=== PATIENT | female | born 1955 | race African-American/Black ===

== ENCOUNTER 2021-08-01 15:03 | Inpatient (IN) ==
[2021-08-01 17:01] LABS: Alanine Aminotransferase 40 U/L (13-56); Albumin 2.1 G/DL (3.4-5.0); Alkaline Phosphatase 125 U/L (45-117); Aspartate Amino Transferase 41 U/L (0-37); Blood Urea Nitrogen 41 MG/DL (7-18); Calcium 9.4 MG/DL (8.5-10.1); Carbon Dioxide 19 MMOL/L (21-32); Estimated Glom Filtration Rate 16 ML/MIN; Glucose 168 MG/DL (74-106); Osmolality,Calculated 288.7 MOS/KG (273-304); Sodium 138 MMOL/L (136-145); Total Protein 7.1 G/DL (6.4-8.2)
[2021-08-01 17:05] LABS: Basophils # 0.1 10*3/uL (0.0-0.2); Basophils % 0.2 % (0.0-0.8); Hematocrit 38.4 VOL% (35.7-47.0); Immature Granulocytes % 1.9 %; Immature Granulocytes Absolute 0.77 #; Lymphocytes # 1.4 10*3/uL (1.4-4.0); Lymphocytes % 3.5 % (21.3-54.2); Mean Corpuscular HGB Conc 28.6 GM/DL (32-36); Mean Corpuscular Volume 101.1 FL (87-102); Mean Platelet Volume 11.4 FL (9.6-12.0); Monocytes % 2.5 % (1.7-12.7); Neutrophils % 91.9 % (38.7-73.9); Platelet Count 214 T/CUMM (130-400); Red Cell Distribution Width 16.3 % (9.3-17.3)
[2021-08-01 17:08] LABS: White Blood Count 40.5 T/CUMM (4-12)
[2021-08-01] MEDS ORDERED: SODIUM CHLORIDE 0.9% 1,000 ML IV STA (17:10)
[2021-08-01 17:15] LABS: Potassium 8.3 MMOL/L (3.5-5.1)
[2021-08-01] MEDS ORDERED: ALBUTEROL 2.5 MG/3 ML NEB RESP TX STA (17:19)
[2021-08-01] MEDS ORDERED: SODIUM POLYSTYRENE SULFATE 15 GM/60 ML BOTTLE PO STA (17:19)
[2021-08-01] MEDS ORDERED: DEXTROSE 50% 25 GM/50 ML VIAL IV STA (17:19)
[2021-08-01] MEDS ORDERED: INSULIN REGULAR 100 UNIT/ML IV STA (17:19)
[2021-08-01] MEDS ORDERED: CALCIUM GLUCONATE 1,000 MG in SODIUM CHLORIDE 0.9% 100 ML IV ONE (17:19)
[2021-08-01 17:20] LABS: Band Neutrophils 20 % (0-10); Lymphocytes 1 % (20-55); Metamyelocytes 5 %; Myelocytes 1 %; Segmented Neutrophils 68 % (50-85); Total Cells Counted 100
[2021-08-01 17:21] LABS: Atypical Lymphocytes Few; Burr Cells Slight
[2021-08-01 17:22] LABS: Platelet Estimate Normal
[2021-08-01] MEDS ORDERED: LEVOFLOXACIN INJ 500 MG/100 ML PREMIX IV STA (17:22)
[2021-08-01] MEDS ORDERED: PIPERACILLIN/TAZOBACTAM 3,375 MG in SODIUM CHLORIDE 0.9% 100 ML IV STA (17:22)
[2021-08-01] MEDS ORDERED: DEXTROSE 50% 25 GM/50 ML SYRINGE IV ONE (17:41)
[2021-08-01] MEDS ORDERED: SODIUM CHLORIDE 0.9% 2,000 ML IV STA (18:07)
[2021-08-01] MEDS ORDERED: PHENYLEPHRINE DRIP 40 MG/250 ML PREMIX IV PRN (18:58)
[2021-08-01] MEDS ORDERED: MORPHINE 2 MG/1 ML SYRINGE IV PRN (18:58)
[2021-08-01] MEDS ORDERED: ONDANSETRON 4 MG/2 ML VIAL IV PRN (18:58)
[2021-08-01] MEDS ORDERED: SODIUM CHLORIDE 0.9% 1,000 ML IV SCH (19:00)
[2021-08-01] MEDS ORDERED: metroNIDAZOLE INJ 500 MG/100 ML PREMIX IV STA (19:05)
[2021-08-01] MEDS ORDERED: cefTRIAXone 1,000 MG in SODIUM CHLORIDE 0.9% 100 ML IV STA (19:06)
[2021-08-01] MEDS ORDERED: SODIUM BICARBONATE 50 MEQ/50 ML VIAL IV ONE (19:08)
[2021-08-01 19:20] LABS: Bacteria,Urine Many /HPF (Few); Bilirubin,Urine Negative (Negative); Blood, Urine Moderate mg/dL (Negative); Glucose,Urine (UA) 50 mg/dL (Negative); Hyaline Casts,Urine 97 /LPF (0-3); Ketones,Urine 5 mg/dL (Negative); Mucus,Urine Many /LPF (Occasional); Nitrite,Urine Negative (Negative); Protein,Urine >=500 MG/DL; RBC,Urine 1318 /HPF (0-4); Squamous Epithelial Cell,Urine Many /HPF (0-10); Urine Appearance CLOUDY (Clear); Urine Color Red (Yellow); Urine Specific Gravity 1.024 (1.001-1.035)
[2021-08-01] MEDS ORDERED: ETOMIDATE 20 MG/10 ML VIAL IV ONE (19:28)
[2021-08-01] MEDS ORDERED: ROCURONIUM 100 MG/10 ML VIAL IV ONE (19:32)
[2021-08-01] MEDS ORDERED: MIDAZOLAM 2 MG/2 ML VIAL ONE (20:46)
[2021-08-01] MEDS ORDERED: MIDAZOLAM 2 MG/2 ML VIAL IV ONE (20:47)
[2021-08-01 21:04] LABS: Calcium 7.8 MG/DL (8.5-10.1); Osmolality,Calculated 293.3 MOS/KG (273-304)
[2021-08-01 21:07] LABS: Potassium 7.6 MMOL/L (3.5-5.1)
[2021-08-01] MEDS: MIDAZOLAM 100 MG in SODIUM CHLORIDE 0.9% 80 ML IV PRN (21:15)
[2021-08-01] MEDS: SODIUM BICARB INJ 100 MEQ in STERILE WATER INJ 1,000 ML IV SCH (21:16)
[2021-08-01] MEDS: PANTOPRAZOLE 40 MG VIAL IV SCH (21:26)
[2021-08-01 21:38] LABS: ABG Base Excess -9.8 MMOL/L (-2.5-2.5); ABG HCO3 16.6 MMOL/L (20-26); ABG Oxygen Saturation 99.1 % (95-100); ABG PCO2 42.6 MM HG (35-48); ABG PH 7.223 (7.35-7.45); ABG TCO2 16.2 MMOL/L (23-27)
[2021-08-02] MEDS: PHENYLEPHRINE INJ 160 MG in SODIUM CHLORIDE 0.9% 234 ML IV PRN ×4 (00:21→18:36)
[2021-08-02] MEDS: metroNIDAZOLE INJ 500 MG/100 ML PREMIX IV SCH ×3 (03:50→18:50)
[2021-08-02 04:22] LABS: ABG Base Excess -9.6 MMOL/L (-2.5-2.5); ABG HCO3 16.8 MMOL/L (20-26); ABG PCO2 41.7 MM HG (35-48); ABG PH 7.234 (7.35-7.45); ABG TCO2 16.1 MMOL/L (23-27)
[2021-08-02 04:47] LABS: Basophils % 0.1 % (0.0-0.8); Hematocrit 36.6 VOL% (35.7-47.0); Immature Granulocytes % 2.9 %; Immature Granulocytes Absolute 0.61 #; Lymphocytes # 0.6 10*3/uL (1.4-4.0); Lymphocytes % 2.9 % (21.3-54.2); Mean Corpuscular HGB Conc 29.2 GM/DL (32-36); Mean Corpuscular Volume 98.1 FL (87-102); Mean Platelet Volume 11.7 FL (9.6-12.0); Monocytes % 1.3 % (1.7-12.7); Neutrophils % 92.8 % (38.7-73.9); Platelet Count 178 T/CUMM (130-400); Red Blood Count 3.73 MC/CUMM (3.8-5.5); Red Cell Distribution Width 16.4 % (9.3-17.3); White Blood Count 21.2 T/CUMM (4-12)
[2021-08-02 04:48] LABS: Hemoglobin 10.7 GM/DL (12.0-16.0)
[2021-08-02 04:57] LABS: Band Neutrophils 8 % (0-10); Lymphocytes 5 % (20-55); Platelet Estimate Adequate; Segmented Neutrophils 86 % (50-85); Total Cells Counted 100
[2021-08-02 05:55] LABS: Albumin 1.9 G/DL (3.4-5.0); Calcium 7.8 MG/DL (8.5-10.1); Osmolality,Calculated 286.7 MOS/KG (273-304); Total Protein 6.3 G/DL (6.4-8.2)
[2021-08-02 05:58] LABS: Potassium 6.3 MMOL/L (3.5-5.1)
[2021-08-02] MEDS ORDERED: SODIUM CHLORIDE 0.9% 1,000 ML IV ONE (06:11)
[2021-08-02] MEDS ORDERED: SODIUM BICARBONATE 50 MEQ/50 ML VIAL IV ONE ×2 (07:29→15:11)
[2021-08-02 08:49] LABS: ABG Base Excess -11.2 MMOL/L (-2.5-2.5); ABG HCO3 15.6 MMOL/L (20-26); ABG Oxygen Saturation 98.7 % (95-100); ABG PCO2 33.1 MM HG (35-48); ABG PH 7.264 (7.35-7.45); ABG TCO2 13.8 MMOL/L (23-27)
[2021-08-02] MEDS: SODIUM BICARB INJ 100 MEQ in STERILE WATER INJ 1,000 ML IV SCH ×4 (09:12→23:53)
[2021-08-02] MEDS: MIDAZOLAM 100 MG in SODIUM CHLORIDE 0.9% 80 ML IV PRN ×2 (09:45→22:27)
[2021-08-02 15:10] LABS: ABG Base Excess -7.6 MMOL/L (-2.5-2.5); ABG HCO3 18.3 MMOL/L (20-26); ABG Oxygen Saturation 99.2 % (95-100); ABG PCO2 27.3 MM HG (35-48); ABG PH 7.382 (7.35-7.45); ABG TCO2 14.6 MMOL/L (23-27)
[2021-08-02 15:11] LABS: Basophils % 0.1 % (0.0-0.8); Hematocrit 32.8 VOL% (35.7-47.0); Hemoglobin 9.9 GM/DL (12.0-16.0); Immature Granulocytes % 3.7 %; Immature Granulocytes Absolute 0.63 #; Lymphocytes # 0.9 10*3/uL (1.4-4.0); Mean Corpuscular HGB Conc 30.2 GM/DL (32-36); Mean Corpuscular Volume 94.3 FL (87-102); Mean Platelet Volume 11.1 FL (9.6-12.0); Monocytes % 1.4 % (1.7-12.7); Neutrophils % 89.8 % (38.7-73.9); Platelet Count 168 T/CUMM (130-400); Red Blood Count 3.48 MC/CUMM (3.8-5.5); Red Cell Distribution Width 16.2 % (9.3-17.3); White Blood Count 17.2 T/CUMM (4-12)
[2021-08-02 15:25] LABS: Calcium 7.9 MG/DL (8.5-10.1); Osmolality,Calculated 297.1 MOS/KG (273-304); Potassium 5.3 MMOL/L (3.5-5.1)
[2021-08-02 15:46] LABS: Band Neutrophils 14 % (0-10); Burr Cells 1+; Eosinophils 1 % (0-10); Hypochromia Slight; Lymphocytes 3 % (20-55); Poikilocytosis 1+; Segmented Neutrophils 79 % (50-85); Total Cells Counted 100
[2021-08-02 15:47] LABS: Atypical Lymphocytes Few; Platelet Estimate Adequate; Polychromasia Slight; Schistocytes Slight
[2021-08-02] MEDS ORDERED: DIGOXIN 0.5 MG/2 ML AMP IV ONE ×2 (16:25→16:40)
[2021-08-02] MEDS ORDERED: CALCIUM GLUCONATE 1,000 MG in SODIUM CHLORIDE 0.9% 100 ML IV ONE (16:26)
[2021-08-02] MEDS ORDERED: DIGOXIN 0.5 MG/2 ML AMP ONE (16:29)
[2021-08-02] MEDS ORDERED: AMIODARONE 150 MG/3 ML VIAL ONE ×2 (16:35→16:51)
[2021-08-02] MEDS ORDERED: AMIODARONE INJ 150 MG in DEXTROSE 5% 100 ML IV ONE ×2 (16:41→16:54)
[2021-08-02] MEDS ORDERED: CALCIUM GLUCONATE 1,000 MG/10 ML VIAL IV ONE (16:45)
[2021-08-02] MEDS ORDERED: ADENOSINE 6 MG/2 ML VIAL ONE (17:02)
[2021-08-02] MEDS ORDERED: ADENOSINE 6 MG/2 ML VIAL IV ONE ×2 (17:03→17:06)
[2021-08-02] MEDS ORDERED: MAGNESIUM SULF RIDER 2 GM/50 ML PREMIX IV ONE (17:35)
[2021-08-02] MEDS: DILTIAZEM INJ 100 MG in SODIUM CHLORIDE 0.9% 100 ML IV SCH ×2 (17:52→22:32)
[2021-08-02] MEDS ORDERED: DAPTOMYCIN IV SCH (18:00)
[2021-08-02] MEDS ORDERED: SODIUM CHLORIDE 0.9% IV SCH (18:00)
[2021-08-02] MEDS: PANTOPRAZOLE 40 MG VIAL IV SCH (19:57)
[2021-08-03] MEDS: PHENYLEPHRINE INJ 160 MG in SODIUM CHLORIDE 0.9% 234 ML IV PRN ×3 (01:29→19:18)
[2021-08-03] MEDS: metroNIDAZOLE INJ 500 MG/100 ML PREMIX IV SCH ×3 (03:51→18:42)
[2021-08-03 04:15] LABS: ABG Base Excess 4.5 MMOL/L (-2.5-2.5); ABG HCO3 28.5 MMOL/L (20-26); ABG Oxygen Saturation 99.4 % (95-100); ABG PCO2 26.3 MM HG (35-48); ABG TCO2 23.2 MMOL/L (23-27)
[2021-08-03 04:17] LABS: ABG PH 7.596 (7.35-7.45)
[2021-08-03 04:22] LABS: Basophils % 0.3 % (0.0-0.8); Eosinophils % 0.1 % (0.00-10.9); Hemoglobin 9.8 GM/DL (12.0-16.0); Immature Granulocytes % 1.1 %; Immature Granulocytes Absolute 0.13 #; Lymphocytes # 1.2 10*3/uL (1.4-4.0); Lymphocytes % 10.6 % (21.3-54.2); Mean Corpuscular HGB Conc 32.7 GM/DL (32-36); Mean Corpuscular Volume 87.2 FL (87-102); Mean Platelet Volume 11.9 FL (9.6-12.0); Monocytes % 2.1 % (1.7-12.7); Neutrophils % 85.8 % (38.7-73.9); Platelet Count 164 T/CUMM (130-400); Red Blood Count 3.44 MC/CUMM (3.8-5.5); Red Cell Distribution Width 15.6 % (9.3-17.3); White Blood Count 11.6 T/CUMM (4-12)
[2021-08-03 04:46] LABS: Lymphocytes 12 % (20-55); Platelet Estimate Adequate; Segmented Neutrophils 88 % (50-85); Total Cells Counted 100
[2021-08-03 04:47] LABS: Hypochromia Slight; Microcytosis Slight
[2021-08-03 04:56] LABS: Albumin 1.6 G/DL (3.4-5.0); Bilirubin,Total 2.6 MG/DL (0.20-1.00); Calcium 7.7 MG/DL (8.5-10.1); Osmolality,Calculated 294.4 MOS/KG (273-304); Potassium 4.3 MMOL/L (3.5-5.1); Total Protein 5.7 G/DL (6.4-8.2)
[2021-08-03] MEDS: SODIUM CHLORIDE 0.9% 1,000 ML IV SCH ×3 (07:54→23:31)
[2021-08-03 08:42] LABS: ABG Base Excess 4.7 MMOL/L (-2.5-2.5); ABG HCO3 28.7 MMOL/L (20-26); ABG Oxygen Saturation 98.9 % (95-100); ABG PCO2 33.5 MM HG (35-48); ABG PH 7.518 (7.35-7.45); ABG TCO2 23.1 MMOL/L (23-27)
[2021-08-03 11:09] LABS: ABG Base Excess 4.4 MMOL/L (-2.5-2.5); ABG HCO3 28.4 MMOL/L (20-26); ABG Oxygen Saturation 97.2 % (95-100); ABG PCO2 40.8 MM HG (35-48); ABG PH 7.455 (7.35-7.45)
[2021-08-03] MEDS: MIDAZOLAM 100 MG in SODIUM CHLORIDE 0.9% 80 ML IV PRN (11:38)
[2021-08-03 11:55] LABS: Calcium 7.6 MG/DL (8.5-10.1)
[2021-08-03] MEDS: ACETAMINOPHEN 325 MG/10.15 ML UDCUP PER TUBE PRN (12:21)
[2021-08-03 16:04] LABS: Calcium 7.5 MG/DL (8.5-10.1); Osmolality,Calculated 299.7 MOS/KG (273-304)
[2021-08-03] MEDS ORDERED: MAGNESIUM SULF RIDER 4 GM/100 ML PREMIX IV ONE (17:23)
[2021-08-03] MEDS ORDERED: AMIKACIN 1,000 MG in SODIUM CHLORIDE 0.9% 100 ML IV ONE (18:30)
[2021-08-03] MEDS: MEROPENEM 500 MG in SODIUM CHLORIDE 0.9% 100 ML IV SCH (18:42)
[2021-08-03] MEDS: PANTOPRAZOLE 40 MG VIAL IV SCH (19:58)
[2021-08-04] MEDS: ACETAMINOPHEN 325 MG/10.15 ML UDCUP PER TUBE PRN ×2 (00:26→20:29)
[2021-08-04] MEDS: metroNIDAZOLE INJ 500 MG/100 ML PREMIX IV SCH (03:05)
[2021-08-04 03:45] LABS: Basophils # 0.1 10*3/uL (0.0-0.2); Basophils % 0.5 % (0.0-0.8); Eosinophils # 0.1 10*3/uL (0.0-0.87); Eosinophils % 0.5 % (0.00-10.9); Hemoglobin 9.6 GM/DL (12.0-16.0); Immature Granulocytes % 0.6 %; Immature Granulocytes Absolute 0.06 #; Lymphocytes # 1.8 10*3/uL (1.4-4.0); Lymphocytes % 18.5 % (21.3-54.2); Mean Corpuscular Volume 92.3 FL (87-102); Monocytes % 4.3 % (1.7-12.7); Neutrophils % 75.6 % (38.7-73.9); Platelet Count 149 T/CUMM (130-400); Red Blood Count 3.36 MC/CUMM (3.8-5.5); Red Cell Distribution Width 16.1 % (9.3-17.3); White Blood Count 9.8 T/CUMM (4-12)
[2021-08-04 04:01] LABS: ABG Base Excess 1.2 MMOL/L (-2.5-2.5); ABG HCO3 25.5 MMOL/L (20-26); ABG Oxygen Saturation 98.6 % (95-100); ABG PCO2 47.1 MM HG (35-48); ABG PH 7.365 (7.35-7.45); ABG TCO2 24.9 MMOL/L (23-27)
[2021-08-04 04:06] LABS: Albumin 1.5 G/DL (3.4-5.0); Bilirubin,Total 3.3 MG/DL (0.20-1.00); Total Protein 5.5 G/DL (6.4-8.2)
[2021-08-04 04:08] LABS: Lymphocytes 15 % (20-55); Segmented Neutrophils 80 % (50-85); Total Cells Counted 100
[2021-08-04 04:09] LABS: Hypochromia 1+; Microcytosis 1+; Target Cells Slight
[2021-08-04 04:10] LABS: Ovalocytes Slight
[2021-08-04] MEDS: MIDAZOLAM 100 MG in SODIUM CHLORIDE 0.9% 80 ML IV PRN (04:26)
[2021-08-04] MEDS: MEROPENEM 500 MG in SODIUM CHLORIDE 0.9% 100 ML IV SCH ×2 (04:58→17:46)
[2021-08-04] MEDS: PHENYLEPHRINE INJ 160 MG in SODIUM CHLORIDE 0.9% 234 ML IV PRN ×2 (05:46→18:05)
[2021-08-04] MEDS: SODIUM CHLORIDE 0.9% 1,000 ML IV SCH ×2 (08:21→17:59)
[2021-08-04] MEDS ORDERED: VANCOMYCIN INJ 2,500 MG in SODIUM CHLORIDE 0.9% 500 ML IV ONE (11:30)
[2021-08-04] MEDS ORDERED: VANCOMYCIN INJ 2,000 MG in SODIUM CHLORIDE 0.9% 500 ML IV PRN (13:30)
[2021-08-04] MEDS: MENTHOL/ZINC OXIDE OINT 71 GM JAR TOP SCH ×2 (16:57→20:35)
[2021-08-04] MEDS: PANTOPRAZOLE 40 MG VIAL IV SCH (20:29)
[2021-08-04] MEDS: DILTIAZEM INJ 100 MG in SODIUM CHLORIDE 0.9% 100 ML IV SCH (22:14)
[2021-08-04] MEDS ORDERED: SODIUM CHLORIDE 0.9% 1,000 ML IV ONE (22:25)
[2021-08-04] MEDS ORDERED: DILTIAZEM 50 MG/10 ML VIAL IV ONE (22:30)
[2021-08-04 22:31] LABS: Basophils # 0.1 10*3/uL (0.0-0.2); Basophils % 0.6 % (0.0-0.8); Eosinophils # 0.1 10*3/uL (0.0-0.87); Eosinophils % 1.1 % (0.00-10.9); Hemoglobin 10.1 GM/DL (12.0-16.0); Immature Granulocytes % 0.7 %; Immature Granulocytes Absolute 0.08 #; Lymphocytes # 1.7 10*3/uL (1.4-4.0); Lymphocytes % 15.7 % (21.3-54.2); Mean Corpuscular HGB Conc 30.6 GM/DL (32-36); Mean Corpuscular Volume 94.3 FL (87-102); Mean Platelet Volume 11.6 FL (9.6-12.0); Monocytes % 4.8 % (1.7-12.7); Neutrophils % 77.1 % (38.7-73.9); Platelet Count 140 T/CUMM (130-400); Red Cell Distribution Width 16.6 % (9.3-17.3); White Blood Count 10.8 T/CUMM (4-12)
[2021-08-04] MEDS ORDERED: DILTIAZEM 25 MG/5 ML VIAL IV ONE (22:36)
[2021-08-04 22:59] LABS: Band Neutrophils 1 % (0-10); Eosinophils 1 % (0-10); Hypochromia Slight; Lymphocytes 11 % (20-55); Platelet Estimate Normal; Segmented Neutrophils 84 % (50-85); Total Cells Counted 100
[2021-08-04 23:01] LABS: Calcium 7.7 MG/DL (8.5-10.1); Osmolality,Calculated 301.3 MOS/KG (273-304); Potassium 4.1 MMOL/L (3.5-5.1)
[2021-08-04] MEDS ORDERED: MAGNESIUM SULF RIDER 4 GM/100 ML PREMIX IV PRN (23:09)
[2021-08-04] MEDS ORDERED: METOPROLOL TARTRATE 5 MG/5 ML VIAL IV ONE (23:40)
[2021-08-04] MEDS: MAGNESIUM SULF RIDER 2 GM/50 ML PREMIX IV PRN (23:47)
[2021-08-05] MEDS ORDERED: DIGOXIN 0.5 MG/2 ML AMP IV ONE (00:19)
[2021-08-05] MEDS ORDERED: AMIODARONE INJ 150 MG in DEXTROSE 5% 100 ML IV ONE (01:26)
[2021-08-05] MEDS ORDERED: SODIUM CHLORIDE 0.45% 1,000 ML IV SCH (01:30)
[2021-08-05] MEDS ORDERED: AMIODARONE 150 MG/3 ML VIAL ONE (01:48)
[2021-08-05] MEDS: HEPARIN 5,000 UNIT/1 ML VIAL SUBCUT SCH ×2 (02:04→11:40)
[2021-08-05 03:57] LABS: ABG Base Excess 0.7 MMOL/L (-2.5-2.5); ABG HCO3 26.3 MMOL/L (20-26); ABG Oxygen Saturation 97.1 % (95-100); ABG PCO2 46.4 MM HG (35-48); ABG PH 7.372 (7.35-7.45); ABG PO2 96.5 MM HG (80-95); ABG TCO2 27.8 MMOL/L (23-27)
[2021-08-05 04:21] LABS: Basophils # 0.1 10*3/uL (0.0-0.2); Basophils % 0.4 % (0.0-0.8); Eosinophils # 0.1 10*3/uL (0.0-0.87); Eosinophils % 1.1 % (0.00-10.9); Hematocrit 33.7 VOL% (35.7-47.0); Hemoglobin 10.1 GM/DL (12.0-16.0); Immature Granulocytes % 0.9 %; Immature Granulocytes Absolute 0.11 #; Lymphocytes # 1.8 10*3/uL (1.4-4.0); Lymphocytes % 14.4 % (21.3-54.2); Mean Corpuscular Volume 94.7 FL (87-102); Mean Platelet Volume 11.7 FL (9.6-12.0); Monocytes % 5.1 % (1.7-12.7); Neutrophils % 78.1 % (38.7-73.9); Platelet Count 145 T/CUMM (130-400); Red Blood Count 3.56 MC/CUMM (3.8-5.5); Red Cell Distribution Width 16.7 % (9.3-17.3); White Blood Count 12.3 T/CUMM (4-12)
[2021-08-05 04:44] LABS: Albumin 1.4 G/DL (3.4-5.0); Bilirubin,Total 2.4 MG/DL (0.20-1.00); Osmolality,Calculated 298.6 MOS/KG (273-304); Potassium 4.1 MMOL/L (3.5-5.1); Total Protein 5.5 G/DL (6.4-8.2)
[2021-08-05 04:48] LABS: Eosinophils 1 % (0-10); Hypochromia 1+; Lymphocytes 14 % (20-55); Microcytosis 1+; Platelet Estimate Adequate; Segmented Neutrophils 81 % (50-85); Total Cells Counted 100
[2021-08-05] MEDS: DILTIAZEM INJ 100 MG in SODIUM CHLORIDE 0.9% 100 ML IV SCH (05:48)
[2021-08-05] MEDS: MIDAZOLAM 100 MG in SODIUM CHLORIDE 0.9% 80 ML IV PRN (05:50)
[2021-08-05] MEDS: MEROPENEM 500 MG in SODIUM CHLORIDE 0.9% 100 ML IV SCH ×2 (06:07→17:28)
[2021-08-05] MEDS: METOPROLOL TARTRATE 25 MG TABLET PO SCH ×2 (11:40→20:47)
[2021-08-05] MEDS: MENTHOL/ZINC OXIDE OINT 71 GM JAR TOP SCH ×2 (11:41→20:48)
[2021-08-05] MEDS: PHENYLEPHRINE INJ 160 MG in SODIUM CHLORIDE 0.9% 234 ML IV PRN (12:02)
[2021-08-05] MEDS: APIXABAN 5 MG TABLET PO SCH ×2 (14:38→20:47)
[2021-08-05] MEDS: DILTIAZEM 30 MG TABLET PO SCH ×2 (14:38→20:47)
[2021-08-05] MEDS: GABAPENTIN 300 MG CAPSULE PO SCH (20:47)
[2021-08-05] MEDS: PANTOPRAZOLE 40 MG VIAL IV SCH (20:48)
[2021-08-05] MEDS: ACETAMINOPHEN 325 MG/10.15 ML UDCUP PER TUBE PRN (20:51)
[2021-08-05] MEDS: MINERAL OIL/PETROLATUM OPH OINT 3.5 GM TUBE BOTH EYES SCH (22:37)
[2021-08-06] MEDS: ACETAMINOPHEN 325 MG/10.15 ML UDCUP PER TUBE PRN (02:00)
[2021-08-06 03:42] LABS: Basophils % 0.3 % (0.0-0.8); Eosinophils # 0.2 10*3/uL (0.0-0.87); Eosinophils % 1.6 % (0.00-10.9); Hematocrit 31.3 VOL% (35.7-47.0); Hemoglobin 9.7 GM/DL (12.0-16.0); Immature Granulocytes % 0.8 %; Immature Granulocytes Absolute 0.08 #; Lymphocytes % 20.7 % (21.3-54.2); Mean Corpuscular Volume 92.6 FL (87-102); Mean Platelet Volume 11.1 FL (9.6-12.0); Monocytes % 6.3 % (1.7-12.7); Neutrophils % 70.3 % (38.7-73.9); Platelet Count 144 T/CUMM (130-400); Red Blood Count 3.38 MC/CUMM (3.8-5.5); Red Cell Distribution Width 16.4 % (9.3-17.3); White Blood Count 9.6 T/CUMM (4-12)
[2021-08-06 03:44] LABS: ABG Base Excess 2.6 MMOL/L (-2.5-2.5); ABG HCO3 27.4 MMOL/L (20-26); ABG PCO2 43.2 MM HG (35-48); ABG PO2 117.2 MM HG (80-95); ABG TCO2 28.7 MMOL/L (23-27)
[2021-08-06 04:07] LABS: Albumin 1.4 G/DL (3.4-5.0); Bilirubin,Total 1.2 MG/DL (0.20-1.00); Calcium 8.1 MG/DL (8.5-10.1); Potassium 4.1 MMOL/L (3.5-5.1); Total Protein 5.6 G/DL (6.4-8.2)
[2021-08-06] MEDS: MAGNESIUM SULF RIDER 2 GM/50 ML PREMIX IV PRN (05:14)
[2021-08-06] MEDS: MEROPENEM 500 MG in SODIUM CHLORIDE 0.9% 100 ML IV SCH ×2 (05:14→16:50)
[2021-08-06] MEDS ORDERED: GLUCAGON 1 MG VIAL IM PRN (05:46)
[2021-08-06] MEDS ORDERED: HYALURONIDASE 200 UNIT/ML VIAL SUBCUT ONE (06:00)
[2021-08-06] MEDS ORDERED: DEXTROSE 50% 25 GM/50 ML SYRINGE IV PRN (06:03)
[2021-08-06] MEDS: INSULIN LISPRO 100 UNIT/ML SUBCUT SCH ×4 (06:46→23:29)
[2021-08-06] MEDS: MIDAZOLAM 100 MG in SODIUM CHLORIDE 0.9% 80 ML IV PRN (07:12)
[2021-08-06] MEDS: APIXABAN 5 MG TABLET PO SCH ×2 (08:07→21:44)
[2021-08-06] MEDS: GABAPENTIN 300 MG CAPSULE PO SCH ×3 (08:07→21:44)
[2021-08-06] MEDS: FERROUS SULFATE 325 MG TABLET PO SCH (08:07)
[2021-08-06] MEDS: ASPIRIN EC 81 MG TABLET PO SCH (08:07)
[2021-08-06] MEDS: METOPROLOL TARTRATE 25 MG TABLET PO SCH ×2 (08:07→21:44)
[2021-08-06] MEDS: MENTHOL/ZINC OXIDE OINT 71 GM JAR TOP SCH ×2 (08:08→21:44)
[2021-08-06] MEDS: DOCUSATE SODIUM 100 MG CAPSULE PO SCH (08:11)
[2021-08-06] MEDS: OXACILLIN 2,000 MG in SODIUM CHLORIDE 0.9% 100 ML IV SCH ×4 (10:11→22:50)
[2021-08-06] MEDS: DILTIAZEM 30 MG TABLET PO SCH ×3 (10:12→21:44)
[2021-08-06] MEDS: PHENYLEPHRINE INJ 160 MG in SODIUM CHLORIDE 0.9% 234 ML IV PRN (16:50)
[2021-08-06] MEDS: PANTOPRAZOLE 40 MG VIAL IV SCH (21:44)
[2021-08-06] MEDS: MINERAL OIL/PETROLATUM OPH OINT 3.5 GM TUBE BOTH EYES SCH (21:44)
[2021-08-07] MEDS: OXACILLIN 2,000 MG in SODIUM CHLORIDE 0.9% 100 ML IV SCH ×6 (02:40→21:50)
[2021-08-07 03:56] LABS: ABG Base Excess 1.6 MMOL/L (-2.5-2.5); ABG HCO3 25.9 MMOL/L (20-26); ABG PH 7.359 (7.35-7.45); ABG TCO2 25.5 MMOL/L (23-27)
[2021-08-07 04:02] LABS: Basophils % 0.4 % (0.0-0.8); Eosinophils # 0.2 10*3/uL (0.0-0.87); Eosinophils % 2.2 % (0.00-10.9); Lymphocytes # 1.6 10*3/uL (1.4-4.0); Lymphocytes % 15.9 % (21.3-54.2); Mean Corpuscular HGB Conc 30.3 GM/DL (32-36); Mean Corpuscular Volume 94.8 FL (87-102); Monocytes % 5.3 % (1.7-12.7); Neutrophils % 75.2 % (38.7-73.9); Platelet Count 135 T/CUMM (130-400); Red Blood Count 3.48 MC/CUMM (3.8-5.5); Red Cell Distribution Width 16.7 % (9.3-17.3)
[2021-08-07 04:34] LABS: Calcium 7.6 MG/DL (8.5-10.1); Osmolality,Calculated 299.6 MOS/KG (273-304); Potassium 4.2 MMOL/L (3.5-5.1)
[2021-08-07] MEDS: INSULIN LISPRO 100 UNIT/ML SUBCUT SCH ×4 (05:45→23:58)
[2021-08-07] MEDS: MEROPENEM 500 MG in SODIUM CHLORIDE 0.9% 100 ML IV SCH ×2 (05:45→18:02)
[2021-08-07] MEDS ORDERED: LORazepam 2 MG/1 ML VIAL IV PRN (08:10)
[2021-08-07] MEDS: DILTIAZEM 30 MG TABLET PO SCH ×3 (08:20→20:44)
[2021-08-07] MEDS: APIXABAN 5 MG TABLET PO SCH ×2 (08:21→20:44)
[2021-08-07] MEDS: DOCUSATE SODIUM 100 MG CAPSULE PO SCH (08:21)
[2021-08-07] MEDS: GABAPENTIN 300 MG CAPSULE PO SCH ×3 (08:21→20:44)
[2021-08-07] MEDS: FERROUS SULFATE 325 MG TABLET PO SCH (08:21)
[2021-08-07] MEDS: ASPIRIN EC 81 MG TABLET PO SCH (08:21)
[2021-08-07] MEDS: MENTHOL/ZINC OXIDE OINT 71 GM JAR TOP SCH ×2 (08:22→21:16)
[2021-08-07] MEDS: METOPROLOL TARTRATE 25 MG TABLET PO SCH ×2 (09:39→20:47)
[2021-08-07] MEDS ORDERED: FUROSEMIDE 40 MG/4 ML VIAL IV ONE (10:30)
[2021-08-07] MEDS: DEXMEDETOMIDINE 200 MCG in SODIUM CHLORIDE 0.9% 48 ML IV PRN ×2 (14:30→23:30)
[2021-08-07] MEDS: PANTOPRAZOLE 40 MG VIAL IV SCH (20:45)
[2021-08-07] MEDS: MINERAL OIL/PETROLATUM OPH OINT 3.5 GM TUBE BOTH EYES SCH (21:16)
[2021-08-08] MEDS: OXACILLIN 2,000 MG in SODIUM CHLORIDE 0.9% 100 ML IV SCH ×6 (02:03→23:00)
[2021-08-08 04:27] LABS: Basophils % 0.3 % (0.0-0.8); Eosinophils # 0.2 10*3/uL (0.0-0.87); Eosinophils % 1.3 % (0.00-10.9); Hematocrit 30.9 VOL% (35.7-47.0); Hemoglobin 9.5 GM/DL (12.0-16.0); Immature Granulocytes % 0.7 %; Immature Granulocytes Absolute 0.08 #; Lymphocytes # 1.9 10*3/uL (1.4-4.0); Mean Corpuscular HGB Conc 30.7 GM/DL (32-36); Mean Corpuscular Volume 92.8 FL (87-102); Mean Platelet Volume 11.9 FL (9.6-12.0); Monocytes % 4.7 % (1.7-12.7); Platelet Count 193 T/CUMM (130-400); Red Blood Count 3.33 MC/CUMM (3.8-5.5); Red Cell Distribution Width 16.6 % (9.3-17.3); White Blood Count 11.8 T/CUMM (4-12)
[2021-08-08 04:41] LABS: ABG Base Excess 3.8 MMOL/L (-2.5-2.5); ABG HCO3 28.5 MMOL/L (20-26); ABG Oxygen Saturation 97.7 % (95-100); ABG PCO2 43.9 MM HG (35-48); ABG PH 7.431 (7.35-7.45); ABG PO2 104.3 MM HG (80-95); ABG TCO2 29.9 MMOL/L (23-27)
[2021-08-08 04:42] LABS: Calcium 8.1 MG/DL (8.5-10.1); Osmolality,Calculated 295.8 MOS/KG (273-304); Potassium 4.2 MMOL/L (3.5-5.1)
[2021-08-08] MEDS: INSULIN LISPRO 100 UNIT/ML SUBCUT SCH ×3 (05:38→18:19)
[2021-08-08] MEDS: MEROPENEM 500 MG in SODIUM CHLORIDE 0.9% 100 ML IV SCH ×3 (05:55→19:15)
[2021-08-08] MEDS: DEXMEDETOMIDINE 200 MCG in SODIUM CHLORIDE 0.9% 48 ML IV PRN (05:55)
[2021-08-08] MEDS: ASPIRIN EC 81 MG TABLET PO SCH (08:33)
[2021-08-08] MEDS: FERROUS SULFATE 325 MG TABLET PO SCH (08:35)
[2021-08-08] MEDS: MENTHOL/ZINC OXIDE OINT 71 GM JAR TOP SCH ×2 (08:36→21:44)
[2021-08-08] MEDS: DILTIAZEM 30 MG TABLET PO SCH ×2 (08:36→21:44)
[2021-08-08] MEDS: DOCUSATE SODIUM 100 MG CAPSULE PO SCH (08:36)
[2021-08-08] MEDS: APIXABAN 5 MG TABLET PO SCH ×2 (08:37→21:42)
[2021-08-08] MEDS: GABAPENTIN 300 MG CAPSULE PO SCH ×3 (08:37→21:42)
[2021-08-08] MEDS: METOPROLOL TARTRATE 25 MG TABLET PO SCH ×2 (08:53→21:43)
[2021-08-08] MEDS ORDERED: FUROSEMIDE 40 MG/4 ML VIAL IV ONE (14:06)
[2021-08-08] MEDS: PANTOPRAZOLE 40 MG VIAL IV SCH (21:41)
[2021-08-08] MEDS: MINERAL OIL/PETROLATUM OPH OINT 3.5 GM TUBE BOTH EYES SCH (21:45)
[2021-08-09] MEDS: INSULIN LISPRO 100 UNIT/ML SUBCUT SCH ×5 (00:21→23:43)
[2021-08-09] MEDS: MEROPENEM 500 MG in SODIUM CHLORIDE 0.9% 100 ML IV SCH ×5 (00:29→23:59)
[2021-08-09] MEDS: OXACILLIN 2,000 MG in SODIUM CHLORIDE 0.9% 100 ML IV SCH ×6 (02:35→21:21)
[2021-08-09 05:26] LABS: ABG Base Excess 5.6 MMOL/L (-2.5-2.5); ABG HCO3 29.5 MMOL/L (20-26); ABG Oxygen Saturation 98.6 % (95-100); ABG PCO2 49.1 MM HG (35-48); ABG PH 7.409 (7.35-7.45); ABG TCO2 28.9 MMOL/L (23-27)
[2021-08-09 05:48] LABS: Basophils % 0.1 % (0.0-0.8); Eosinophils # 0.1 10*3/uL (0.0-0.87); Hematocrit 26.8 VOL% (35.7-47.0); Hemoglobin 8.4 GM/DL (12.0-16.0); Immature Granulocytes % 0.8 %; Immature Granulocytes Absolute 0.08 #; Lymphocytes # 1.6 10*3/uL (1.4-4.0); Lymphocytes % 15.6 % (21.3-54.2); Mean Corpuscular HGB Conc 31.3 GM/DL (32-36); Mean Corpuscular Volume 93.4 FL (87-102); Mean Platelet Volume 11.6 FL (9.6-12.0); Monocytes % 5.6 % (1.7-12.7); Neutrophils % 76.9 % (38.7-73.9); Platelet Count 223 T/CUMM (130-400); Red Blood Count 2.87 MC/CUMM (3.8-5.5); Red Cell Distribution Width 16.9 % (9.3-17.3); White Blood Count 10.5 T/CUMM (4-12)
[2021-08-09 06:39] LABS: Anisocytosis 2+; Band Neutrophils 6 % (0-10); Eosinophils 2 % (0-10); Hypochromia 1+; Lymphocytes 15 % (20-55); Macrocytosis 1+; Platelet Estimate Normal; Segmented Neutrophils 70 % (50-85); Target Cells Few; Total Cells Counted 100
[2021-08-09 06:50] LABS: Albumin 1.3 G/DL (3.4-5.0); Bilirubin,Total 0.8 MG/DL (0.20-1.00); Calcium 7.8 MG/DL (8.5-10.1); Osmolality,Calculated 294.8 MOS/KG (273-304); Total Protein 5.7 G/DL (6.4-8.2)
[2021-08-09 07:07] LABS: Calcium 7.8 MG/DL (8.5-10.1); Osmolality,Calculated 289.3 MOS/KG (273-304); Potassium 3.9 MMOL/L (3.5-5.1)
[2021-08-09] MEDS: METOPROLOL TARTRATE 25 MG TABLET PO SCH ×2 (08:57→20:42)
[2021-08-09] MEDS: GABAPENTIN 300 MG CAPSULE PO SCH ×3 (08:57→20:43)
[2021-08-09] MEDS: APIXABAN 5 MG TABLET PO SCH ×2 (08:57→20:43)
[2021-08-09] MEDS: DILTIAZEM 30 MG TABLET PO SCH ×2 (08:57→20:44)
[2021-08-09] MEDS: FERROUS SULFATE 325 MG TABLET PO SCH (08:57)
[2021-08-09] MEDS: ASPIRIN EC 81 MG TABLET PO SCH (08:57)
[2021-08-09] MEDS: DOCUSATE SODIUM 100 MG CAPSULE PO SCH (08:58)
[2021-08-09] MEDS: MENTHOL/ZINC OXIDE OINT 71 GM JAR TOP SCH ×2 (08:58→20:43)
[2021-08-09] MEDS: ALBUTEROL/IPRATROPIUM 3 ML NEB RESP TX SCH ×2 (13:19→19:40)
[2021-08-09] MEDS: PANTOPRAZOLE 40 MG VIAL IV SCH (20:43)
[2021-08-09] MEDS: MINERAL OIL/PETROLATUM OPH OINT 3.5 GM TUBE BOTH EYES SCH (20:45)
[2021-08-09] MEDS: DEXMEDETOMIDINE 200 MCG in SODIUM CHLORIDE 0.9% 48 ML IV PRN (21:19)
[2021-08-09] MEDS: DEXMEDETOMIDINE 400 MCG in SODIUM CHLORIDE 0.9% 96 ML IV PRN (21:19)
[2021-08-10] MEDS: ALBUTEROL/IPRATROPIUM 3 ML NEB RESP TX SCH ×4 (01:40→19:56)
[2021-08-10] MEDS: OXACILLIN 2,000 MG in SODIUM CHLORIDE 0.9% 100 ML IV SCH ×6 (02:23→22:59)
[2021-08-10 04:08] LABS: Basophils % 0.1 % (0.0-0.8); Eosinophils # 0.1 10*3/uL (0.0-0.87); Eosinophils % 1.1 % (0.00-10.9); Hematocrit 26.2 VOL% (35.7-47.0); Immature Granulocytes % 0.6 %; Immature Granulocytes Absolute 0.06 #; Lymphocytes # 1.4 10*3/uL (1.4-4.0); Mean Corpuscular HGB Conc 30.5 GM/DL (32-36); Mean Corpuscular Volume 94.2 FL (87-102); Mean Platelet Volume 11.2 FL (9.6-12.0); Monocytes % 6.4 % (1.7-12.7); Neutrophils % 76.8 % (38.7-73.9); Platelet Count 250 T/CUMM (130-400); Red Blood Count 2.78 MC/CUMM (3.8-5.5); Red Cell Distribution Width 16.7 % (9.3-17.3); White Blood Count 9.3 T/CUMM (4-12)
[2021-08-10 04:13] LABS: ABG Base Excess 6.8 MMOL/L (-2.5-2.5); ABG HCO3 30.6 MMOL/L (20-26); ABG Oxygen Saturation 98.6 % (95-100); ABG PCO2 48.7 MM HG (35-48); ABG PH 7.426 (7.35-7.45); ABG TCO2 29.9 MMOL/L (23-27)
[2021-08-10 04:19] LABS: Osmolality,Calculated 289.8 MOS/KG (273-304); Potassium 4.3 MMOL/L (3.5-5.1)
[2021-08-10] MEDS: INSULIN LISPRO 100 UNIT/ML SUBCUT SCH ×3 (05:57→18:19)
[2021-08-10] MEDS: MEROPENEM 500 MG in SODIUM CHLORIDE 0.9% 100 ML IV SCH ×3 (06:05→18:20)
[2021-08-10] MEDS: GABAPENTIN 300 MG CAPSULE PO SCH ×3 (08:37→20:31)
[2021-08-10] MEDS: FERROUS SULFATE 325 MG TABLET PO SCH (08:37)
[2021-08-10] MEDS: DOCUSATE SODIUM 100 MG CAPSULE PO SCH (08:37)
[2021-08-10] MEDS: APIXABAN 5 MG TABLET PO SCH (08:37)
[2021-08-10] MEDS: ASPIRIN EC 81 MG TABLET PO SCH (08:38)
[2021-08-10] MEDS: DILTIAZEM 30 MG TABLET PO SCH ×2 (08:38→20:30)
[2021-08-10] MEDS: METOPROLOL TARTRATE 25 MG TABLET PO SCH ×2 (08:38→20:32)
[2021-08-10] MEDS: MENTHOL/ZINC OXIDE OINT 71 GM JAR TOP SCH ×2 (10:03→20:41)
[2021-08-10] MEDS: DEXMEDETOMIDINE 200 MCG in SODIUM CHLORIDE 0.9% 48 ML IV PRN (10:25)
[2021-08-10] MEDS: METOCLOPRAMIDE 10 MG/2 ML VIAL IV SCH ×2 (12:46→18:20)
[2021-08-10] MEDS: DEXMEDETOMIDINE 400 MCG in SODIUM CHLORIDE 0.9% 96 ML IV PRN (15:30)
[2021-08-10] MEDS: ATORVASTATIN 40 MG TABLET PO SCH (20:30)
[2021-08-10] MEDS: PANTOPRAZOLE 40 MG VIAL IV SCH (20:31)
[2021-08-10] MEDS: MINERAL OIL/PETROLATUM OPH OINT 3.5 GM TUBE BOTH EYES SCH (20:41)
[2021-08-10] MEDS: MAGNESIUM SULF RIDER 2 GM/50 ML PREMIX IV PRN (23:17)
[2021-08-11] MEDS: DEXMEDETOMIDINE 400 MCG in SODIUM CHLORIDE 0.9% 96 ML IV PRN ×3 (00:38→15:22)
[2021-08-11] MEDS: METOCLOPRAMIDE 10 MG/2 ML VIAL IV SCH ×4 (01:00→18:00)
[2021-08-11] MEDS: ALBUTEROL/IPRATROPIUM 3 ML NEB RESP TX SCH ×4 (01:02→20:51)
[2021-08-11] MEDS: MEROPENEM 500 MG in SODIUM CHLORIDE 0.9% 100 ML IV SCH ×4 (01:03→18:00)
[2021-08-11] MEDS: INSULIN LISPRO 100 UNIT/ML SUBCUT SCH ×4 (01:04→18:22)
[2021-08-11] MEDS: OXACILLIN 2,000 MG in SODIUM CHLORIDE 0.9% 100 ML IV SCH ×6 (02:25→21:12)
[2021-08-11] MEDS ORDERED: DEXTROSE 10% 250 ML BAG IV PRN (02:30)
[2021-08-11 03:36] LABS: ABG HCO3 28.9 MMOL/L (20-26); ABG Oxygen Saturation 97.9 % (95-100); ABG PCO2 46.7 MM HG (35-48); ABG PH 7.419 (7.35-7.45); ABG TCO2 27.2 MMOL/L (23-27)
[2021-08-11 03:43] LABS: Basophils % 0.2 % (0.0-0.8); Eosinophils # 0.1 10*3/uL (0.0-0.87); Eosinophils % 1.2 % (0.00-10.9); Hematocrit 26.2 VOL% (35.7-47.0); Hemoglobin 8.1 GM/DL (12.0-16.0); Immature Granulocytes % 0.4 %; Immature Granulocytes Absolute 0.04 #; Lymphocytes # 1.5 10*3/uL (1.4-4.0); Lymphocytes % 15.5 % (21.3-54.2); Mean Corpuscular HGB Conc 30.9 GM/DL (32-36); Mean Corpuscular Volume 94.2 FL (87-102); Mean Platelet Volume 11.2 FL (9.6-12.0); Monocytes % 6.3 % (1.7-12.7); Neutrophils % 76.4 % (38.7-73.9); Platelet Count 290 T/CUMM (130-400); Red Blood Count 2.78 MC/CUMM (3.8-5.5); Red Cell Distribution Width 16.8 % (9.3-17.3); White Blood Count 9.6 T/CUMM (4-12)
[2021-08-11 03:57] LABS: Calcium 8.2 MG/DL (8.5-10.1); Osmolality,Calculated 289.8 MOS/KG (273-304); Potassium 4.6 MMOL/L (3.5-5.1)
[2021-08-11] MEDS ORDERED: PHENYLEPHRINE 1 MG/10 ML SYRINGE IV ONE (08:24)
[2021-08-11] MEDS ORDERED: MIDAZOLAM 2 MG/2 ML VIAL ONE ×2 (08:24→08:25)
[2021-08-11] MEDS ORDERED: LIDOCAINE 1%/EPI INJ 20 ML VIAL ONE (08:28)
[2021-08-11] MEDS ORDERED: FUROSEMIDE 40 MG/4 ML VIAL IV ONE (09:57)
[2021-08-11] MEDS: MENTHOL/ZINC OXIDE OINT 71 GM JAR TOP SCH ×2 (10:19→21:12)
[2021-08-11] MEDS: ASPIRIN EC 81 MG TABLET PO SCH (10:19)
[2021-08-11] MEDS: DILTIAZEM 30 MG TABLET PO SCH ×2 (10:19→20:45)
[2021-08-11] MEDS: FERROUS SULFATE 325 MG TABLET PO SCH (10:20)
[2021-08-11] MEDS: DOCUSATE SODIUM 100 MG CAPSULE PO SCH (10:20)
[2021-08-11] MEDS: METOPROLOL TARTRATE 25 MG TABLET PO SCH ×2 (10:20→20:44)
[2021-08-11] MEDS: GABAPENTIN 300 MG CAPSULE PO SCH ×3 (10:20→20:44)
[2021-08-11] MEDS: PANTOPRAZOLE 40 MG VIAL IV SCH (20:45)
[2021-08-11] MEDS: ATORVASTATIN 40 MG TABLET PO SCH (20:47)
[2021-08-11] MEDS: MINERAL OIL/PETROLATUM OPH OINT 3.5 GM TUBE BOTH EYES SCH (21:12)
[2021-08-12] MEDS: METOCLOPRAMIDE 10 MG/2 ML VIAL IV SCH ×5 (00:51→23:52)
[2021-08-12] MEDS: MEROPENEM 500 MG in SODIUM CHLORIDE 0.9% 100 ML IV SCH ×3 (00:52→11:44)
[2021-08-12] MEDS: INSULIN LISPRO 100 UNIT/ML SUBCUT SCH ×5 (00:53→23:52)
[2021-08-12] MEDS: OXACILLIN 2,000 MG in SODIUM CHLORIDE 0.9% 100 ML IV SCH ×6 (01:02→21:28)
[2021-08-12] MEDS: ALBUTEROL/IPRATROPIUM 3 ML NEB RESP TX SCH ×4 (02:23→19:25)
[2021-08-12 03:40] LABS: Eosinophils # 0.1 10*3/uL (0.0-0.87); Eosinophils % 1.2 % (0.00-10.9); Hematocrit 26.1 VOL% (35.7-47.0); Hemoglobin 8.1 GM/DL (12.0-16.0); Immature Granulocytes % 0.4 %; Immature Granulocytes Absolute 0.03 #; Lymphocytes # 1.4 10*3/uL (1.4-4.0); Lymphocytes % 19.2 % (21.3-54.2); Mean Corpuscular Volume 93.2 FL (87-102); Mean Platelet Volume 10.7 FL (9.6-12.0); Monocytes % 7.1 % (1.7-12.7); Neutrophils % 72.1 % (38.7-73.9); Platelet Count 305 T/CUMM (130-400); Red Cell Distribution Width 16.6 % (9.3-17.3); White Blood Count 7.5 T/CUMM (4-12)
[2021-08-12 03:42] LABS: ABG Base Excess 5.6 MMOL/L (-2.5-2.5); ABG HCO3 29.5 MMOL/L (20-26); ABG Oxygen Saturation 98.5 % (95-100); ABG PCO2 42.3 MM HG (35-48); ABG PH 7.458 (7.35-7.45); ABG TCO2 27.5 MMOL/L (23-27)
[2021-08-12 04:09] LABS: Albumin 1.3 G/DL (3.4-5.0); Bilirubin,Total 0.5 MG/DL (0.20-1.00); Calcium 8.1 MG/DL (8.5-10.1); Potassium 4.2 MMOL/L (3.5-5.1); Total Protein 6.1 G/DL (6.4-8.2)
[2021-08-12 06:08] LABS: Bilirubin,Urine Negative (Negative); Blood, Urine Negative (Negative); Glucose,Urine (UA) Negative (Negative); Ketones,Urine Negative (Negative); Nitrite,Urine Negative (Negative); Protein,Urine 30 MG/DL; RBC,Urine 7 /HPF (0-4); Squamous Epithelial Cell,Urine Few /HPF (0-10); Urine Appearance Slightly Hazy (Clear); Urine Color Yellow (Yellow); Urine Specific Gravity 1.017 (1.001-1.035); Urine Urobilinogen < 2.0 EU/DL (<2.0)
[2021-08-12] MEDS: ASPIRIN EC 81 MG TABLET PO SCH (08:04)
[2021-08-12] MEDS: METOPROLOL TARTRATE 25 MG TABLET PO SCH ×2 (08:04→21:27)
[2021-08-12] MEDS: GABAPENTIN 300 MG CAPSULE PO SCH ×3 (08:04→21:28)
[2021-08-12] MEDS: DILTIAZEM 30 MG TABLET PO SCH ×2 (08:04→21:28)
[2021-08-12] MEDS: FERROUS SULFATE 325 MG TABLET PO SCH (08:05)
[2021-08-12] MEDS: MENTHOL/ZINC OXIDE OINT 71 GM JAR TOP SCH ×2 (08:13→21:28)
[2021-08-12] MEDS: DOCUSATE SODIUM 100 MG CAPSULE PO SCH (08:13)
[2021-08-12] MEDS ORDERED: MORPHINE 2 MG/1 ML SYRINGE IV PRN (11:30)
[2021-08-12] MEDS: PANTOPRAZOLE 40 MG VIAL IV SCH (21:27)
[2021-08-12] MEDS: MINERAL OIL/PETROLATUM OPH OINT 3.5 GM TUBE BOTH EYES SCH (21:28)
[2021-08-12] MEDS: ATORVASTATIN 40 MG TABLET PO SCH (21:28)
[2021-08-13] MEDS: ALBUTEROL/IPRATROPIUM 3 ML NEB RESP TX SCH ×4 (00:37→22:37)
[2021-08-13] MEDS: OXACILLIN 2,000 MG in SODIUM CHLORIDE 0.9% 100 ML IV SCH ×6 (02:52→23:03)
[2021-08-13 03:22] LABS: Basophils % 0.3 % (0.0-0.8); Eosinophils # 0.1 10*3/uL (0.0-0.87); Eosinophils % 1.4 % (0.00-10.9); Hemoglobin 8.6 GM/DL (12.0-16.0); Immature Granulocytes % 0.5 %; Immature Granulocytes Absolute 0.04 #; Lymphocytes # 1.4 10*3/uL (1.4-4.0); Lymphocytes % 17.9 % (21.3-54.2); Mean Corpuscular HGB Conc 30.7 GM/DL (32-36); Mean Corpuscular Volume 94.3 FL (87-102); Mean Platelet Volume 10.6 FL (9.6-12.0); Neutrophils % 73.9 % (38.7-73.9); Platelet Count 335 T/CUMM (130-400); Red Blood Count 2.97 MC/CUMM (3.8-5.5); Red Cell Distribution Width 16.6 % (9.3-17.3); White Blood Count 7.8 T/CUMM (4-12)
[2021-08-13 03:25] LABS: ABG Base Excess 3.3 MMOL/L (-2.5-2.5); ABG HCO3 27.3 MMOL/L (20-26); ABG Oxygen Saturation 95.4 % (95-100); ABG PCO2 40.6 MM HG (35-48); ABG PH 7.441 (7.35-7.45); ABG PO2 82.8 MM HG (80-95); ABG TCO2 24.5 MMOL/L (23-27)
[2021-08-13 04:02] LABS: Calcium 8.1 MG/DL (8.5-10.1); Osmolality,Calculated 287.8 MOS/KG (273-304); Potassium 3.9 MMOL/L (3.5-5.1)
[2021-08-13] MEDS: INSULIN LISPRO 100 UNIT/ML SUBCUT SCH ×3 (06:29→17:20)
[2021-08-13] MEDS: METOCLOPRAMIDE 10 MG/2 ML VIAL IV SCH (06:30)
[2021-08-13] MEDS: DOCUSATE SODIUM 100 MG CAPSULE PO SCH (08:20)
[2021-08-13] MEDS: GABAPENTIN 300 MG CAPSULE PO SCH ×3 (08:20→22:08)
[2021-08-13] MEDS: ASPIRIN EC 81 MG TABLET PO SCH (08:20)
[2021-08-13] MEDS: METOPROLOL TARTRATE 25 MG TABLET PO SCH ×2 (08:20→22:08)
[2021-08-13] MEDS: FERROUS SULFATE 325 MG TABLET PO SCH (08:20)
[2021-08-13] MEDS: MENTHOL/ZINC OXIDE OINT 71 GM JAR TOP SCH ×2 (08:21→22:11)
[2021-08-13] MEDS: DILTIAZEM 30 MG TABLET PO SCH ×2 (08:21→22:08)
[2021-08-13] MEDS: SODIUM HYPOCHLORITE 0.25% IRRIG 473 ML BOTTLE TOP SCH (15:02)
[2021-08-13] MEDS: ATORVASTATIN 40 MG TABLET PO SCH (22:08)
[2021-08-13] MEDS: PANTOPRAZOLE 40 MG VIAL IV SCH (22:09)
[2021-08-13] MEDS: MINERAL OIL/PETROLATUM OPH OINT 3.5 GM TUBE BOTH EYES SCH (22:30)
[2021-08-14] MEDS: ALBUTEROL/IPRATROPIUM 3 ML NEB RESP TX SCH ×4 (00:15→21:00)
[2021-08-14] MEDS: INSULIN LISPRO 100 UNIT/ML SUBCUT SCH ×4 (00:31→17:49)
[2021-08-14] MEDS: OXACILLIN 2,000 MG in SODIUM CHLORIDE 0.9% 100 ML IV SCH ×6 (03:36→21:44)
[2021-08-14 05:42] LABS: Calcium 8.8 MG/DL (8.5-10.1); Potassium 3.7 MMOL/L (3.5-5.1)
[2021-08-14 07:33] LABS: Basophils % 0.3 % (0.0-0.8); Eosinophils # 0.1 10*3/uL (0.0-0.87); Eosinophils % 1.8 % (0.00-10.9); Hematocrit 27.5 VOL% (35.7-47.0); Hemoglobin 8.5 GM/DL (12.0-16.0); Immature Granulocytes % 0.3 %; Immature Granulocytes Absolute 0.02 #; Lymphocytes # 1.2 10*3/uL (1.4-4.0); Lymphocytes % 19.1 % (21.3-54.2); Mean Corpuscular HGB Conc 30.9 GM/DL (32-36); Mean Corpuscular Volume 94.5 FL (87-102); Mean Platelet Volume 11.1 FL (9.6-12.0); Monocytes % 7.2 % (1.7-12.7); Neutrophils % 71.3 % (38.7-73.9); Platelet Count 362 T/CUMM (130-400); Red Blood Count 2.91 MC/CUMM (3.8-5.5); Red Cell Distribution Width 16.7 % (9.3-17.3); White Blood Count 6.1 T/CUMM (4-12)
[2021-08-14] MEDS: ASPIRIN EC 81 MG TABLET PO SCH (08:53)
[2021-08-14] MEDS: GABAPENTIN 300 MG CAPSULE PO SCH ×3 (08:53→21:44)
[2021-08-14] MEDS: METOPROLOL TARTRATE 25 MG TABLET PO SCH ×2 (08:53→21:44)
[2021-08-14] MEDS: SODIUM HYPOCHLORITE 0.25% IRRIG 473 ML BOTTLE TOP SCH (08:54)
[2021-08-14] MEDS: FERROUS SULFATE 325 MG TABLET PO SCH (08:54)
[2021-08-14] MEDS: DOCUSATE SODIUM 100 MG CAPSULE PO SCH (08:54)
[2021-08-14] MEDS: DILTIAZEM 30 MG TABLET PO SCH ×2 (08:56→21:44)
[2021-08-14] MEDS: MENTHOL/ZINC OXIDE OINT 71 GM JAR TOP SCH ×2 (09:12→21:46)
[2021-08-14] MEDS ORDERED: MAGNESIUM SULF RIDER 2 GM/50 ML PREMIX IV ONE (09:21)
[2021-08-14] MEDS: PANTOPRAZOLE 40 MG VIAL IV SCH (21:43)
[2021-08-14] MEDS: ATORVASTATIN 40 MG TABLET PO SCH (21:44)
[2021-08-14] MEDS: APIXABAN 5 MG TABLET PO SCH (21:44)
[2021-08-14] MEDS: MINERAL OIL/PETROLATUM OPH OINT 3.5 GM TUBE BOTH EYES SCH (21:53)
[2021-08-15] MEDS: INSULIN LISPRO 100 UNIT/ML SUBCUT SCH ×3 (00:55→11:45)
[2021-08-15] MEDS: OXACILLIN 2,000 MG in SODIUM CHLORIDE 0.9% 100 ML IV SCH ×4 (01:54→15:08)
[2021-08-15] MEDS: ALBUTEROL/IPRATROPIUM 3 ML NEB RESP TX SCH ×3 (02:00→13:23)
[2021-08-15 05:54] LABS: Basophils % 0.3 % (0.0-0.8); Eosinophils # 0.1 10*3/uL (0.0-0.87); Eosinophils % 1.5 % (0.00-10.9); Hemoglobin 8.5 GM/DL (12.0-16.0); Immature Granulocytes % 0.3 %; Immature Granulocytes Absolute 0.02 #; Lymphocytes # 1.1 10*3/uL (1.4-4.0); Lymphocytes % 18.5 % (21.3-54.2); Mean Corpuscular HGB Conc 29.3 GM/DL (32-36); Mean Platelet Volume 10.7 FL (9.6-12.0); Monocytes % 8.3 % (1.7-12.7); Neutrophils % 71.1 % (38.7-73.9); Platelet Count 359 T/CUMM (130-400); Red Blood Count 3.02 MC/CUMM (3.8-5.5); Red Cell Distribution Width 16.9 % (9.3-17.3); White Blood Count 5.9 T/CUMM (4-12)
[2021-08-15 06:11] LABS: Calcium 8.5 MG/DL (8.5-10.1); Potassium 3.9 MMOL/L (3.5-5.1)
[2021-08-15] MEDS: METOPROLOL TARTRATE 25 MG TABLET PO SCH (08:22)
[2021-08-15] MEDS: APIXABAN 5 MG TABLET PO SCH (08:22)
[2021-08-15] MEDS: DILTIAZEM 30 MG TABLET PO SCH (08:22)
[2021-08-15] MEDS: DOCUSATE SODIUM 100 MG CAPSULE PO SCH (08:22)
[2021-08-15] MEDS: ASPIRIN EC 81 MG TABLET PO SCH (08:23)
[2021-08-15] MEDS: GABAPENTIN 300 MG CAPSULE PO SCH (08:23)
[2021-08-15] MEDS: FERROUS SULFATE 325 MG TABLET PO SCH (08:23)
[2021-08-15] MEDS ORDERED: PANTOPRAZOLE 40 MG TABLET PO SCH (09:00)
[2021-08-15] MEDS: SODIUM HYPOCHLORITE 0.25% IRRIG 473 ML BOTTLE TOP SCH (10:30)
[2021-08-15] MEDS: MENTHOL/ZINC OXIDE OINT 71 GM JAR TOP SCH (10:51)
[2021-08-15 12:12] VITALS: BP 113/67
== END 2021-08-15 15:56 | DRG 720 ==
LOC: EDUNIT# → EDBD → N.ED 15:03 → SUATTDRO 18:56 → N.EDINP 18:56 → N.CC 19:38 → N.5E 08-13 17:08
PROVIDERS: ADMIT Internal Medicine; ATTEND Internal Medicine

== ENCOUNTER 2021-08-17 06:15 | Inpatient (IN) ==
[2021-08-17] MEDS ORDERED: methylPREDNISolone SOD SUC 125 MG/2 ML VIAL IV STA (06:47)
[2021-08-17] MEDS ORDERED: PIPERACILLIN/TAZOBACTAM 3,375 MG in SODIUM CHLORIDE 0.9% 100 ML IV STA (06:47)
[2021-08-17] MEDS ORDERED: ALBUTEROL NEB SOLN 5 MG/ML 20 ML/BOTTLE CONT NEB SCH (07:00)
[2021-08-17] MEDS ORDERED: FUROSEMIDE 40 MG/4 ML VIAL IV STA (07:05)
[2021-08-17 07:07] LABS: ABG Base Excess -4.3 MMOL/L (-2.5-2.5); ABG HCO3 20.8 MMOL/L (20-26); ABG Oxygen Saturation 95.5 % (95-100); ABG TCO2 24.1 MMOL/L (23-27)
[2021-08-17 07:09] LABS: ABG PCO2 70.3 MM HG (35-48)
[2021-08-17 07:29] LABS: Bacteria,Urine Many /HPF (Few); Bilirubin,Urine Negative (Negative); Blood, Urine Small mg/dL (Negative); Glucose,Urine (UA) Negative (Negative); Hyaline Casts,Urine 7 /LPF (0-3); Ketones,Urine Negative (Negative); Mucus,Urine Occasional /LPF (Occasional); Nitrite,Urine Positive (Negative); Protein,Urine 30 MG/DL; RBC,Urine 2 /HPF (0-4); Squamous Epithelial Cell,Urine Occasional /HPF (0-10); Urine Appearance Slightly Hazy (Clear); Urine Color Yellow (Yellow); Urine Specific Gravity 1.014 (1.001-1.035); Urine Urobilinogen < 2.0 EU/DL (<2.0)
[2021-08-17 07:32] LABS: Albumin 1.9 G/DL (3.4-5.0); Bilirubin,Total 0.4 MG/DL (0.20-1.00); Osmolality,Calculated 285.3 MOS/KG (273-304); Potassium 4.2 MMOL/L (3.5-5.1)
[2021-08-17 07:34] LABS: Basophils % 0.4 % (0.0-0.8); Eosinophils # 0.2 10*3/uL (0.0-0.87); Eosinophils % 2.1 % (0.00-10.9); Hematocrit 35.3 VOL% (35.7-47.0); Immature Granulocytes % 0.4 %; Immature Granulocytes Absolute 0.04 #; Lymphocytes # 2.7 10*3/uL (1.4-4.0); Lymphocytes % 29.2 % (21.3-54.2); Mean Corpuscular HGB Conc 28.9 GM/DL (32-36); Mean Platelet Volume 11.1 FL (9.6-12.0); Monocytes % 5.3 % (1.7-12.7); Neutrophils % 62.6 % (38.7-73.9); Platelet Count 450 T/CUMM (130-400); Red Blood Count 3.53 MC/CUMM (3.8-5.5); Red Cell Distribution Width 16.7 % (9.3-17.3); White Blood Count 9.1 T/CUMM (4-12)
[2021-08-17 07:35] LABS: Hemoglobin 10.2 GM/DL (12.0-16.0)
[2021-08-17] MEDS ORDERED: ALBUTEROL NEB SOLN 5 MG/ML 20 ML/BOTTLE CONT NEB STA (07:58)
[2021-08-17 08:50] LABS: ABG Base Excess 0.7 MMOL/L (-2.5-2.5); ABG Oxygen Saturation 95.9 % (95-100); ABG PCO2 56.7 MM HG (35-48); ABG PH 7.301 (7.35-7.45); ABG PO2 95.4 MM HG (80-95); ABG TCO2 25.9 MMOL/L (23-27)
[2021-08-17] MEDS ORDERED: MAGNESIUM SULF RIDER 2 GM/50 ML PREMIX IV PRN (09:59)
[2021-08-17] MEDS ORDERED: MAGNESIUM SULF RIDER 4 GM/100 ML PREMIX IV PRN (09:59)
[2021-08-17] MEDS ORDERED: ONDANSETRON 4 MG/2 ML VIAL IV PRN (09:59)
[2021-08-17] MEDS ORDERED: DEXTROSE 50% 25 GM/50 ML VIAL IV PRN (09:59)
[2021-08-17] MEDS ORDERED: DEXTROSE 10% 250 ML BAG IV PRN (09:59)
[2021-08-17] MEDS ORDERED: GLUCAGON 1 MG VIAL IM PRN ×2 (09:59)
[2021-08-17] MEDS ORDERED: LACTULOSE 20 GM/30 ML UDCUP PO PRN (11:02)
[2021-08-17] MEDS: PIPERACILLIN/TAZOBACTAM 3,375 MG in SODIUM CHLORIDE 0.9% 100 ML IV SCH ×2 (11:05→17:43)
[2021-08-17] MEDS: ALBUTEROL/IPRATROPIUM 3 ML NEB RESP TX SCH ×2 (13:42→19:52)
[2021-08-17] MEDS: tiZANidine 4 MG TABLET PO SCH ×2 (17:19→21:03)
[2021-08-17] MEDS: FUROSEMIDE 40 MG/4 ML VIAL IV SCH (17:20)
[2021-08-17] MEDS: APIXABAN 5 MG TABLET PO SCH (21:02)
[2021-08-17] MEDS: MELATONIN 3 MG TABLET PO SCH (21:02)
[2021-08-17] MEDS: DILTIAZEM 30 MG TABLET PO SCH (21:02)
[2021-08-17] MEDS: MINERAL OIL/PETROLATUM OPH OINT 3.5 GM TUBE BOTH EYES SCH (21:03)
[2021-08-17] MEDS: MENTHOL/ZINC OXIDE OINT 71 GM JAR TOP SCH (21:03)
[2021-08-17] MEDS: ATORVASTATIN 40 MG TABLET PO SCH (21:03)
[2021-08-18] MEDS: ALBUTEROL/IPRATROPIUM 3 ML NEB RESP TX SCH ×4 (01:27→19:37)
[2021-08-18] MEDS: PIPERACILLIN/TAZOBACTAM 3,375 MG in SODIUM CHLORIDE 0.9% 100 ML IV SCH ×3 (02:23→17:35)
[2021-08-18 05:36] LABS: Basophils % 0.2 % (0.0-0.8); Hematocrit 27.3 VOL% (35.7-47.0); Hemoglobin 8.3 GM/DL (12.0-16.0); Immature Granulocytes % 0.2 %; Immature Granulocytes Absolute 0.01 #; Lymphocytes # 0.9 10*3/uL (1.4-4.0); Lymphocytes % 15.4 % (21.3-54.2); Mean Corpuscular HGB Conc 30.4 GM/DL (32-36); Mean Corpuscular Volume 95.8 FL (87-102); Mean Platelet Volume 10.7 FL (9.6-12.0); Monocytes % 6.5 % (1.7-12.7); Neutrophils % 77.7 % (38.7-73.9); Red Blood Count 2.85 MC/CUMM (3.8-5.5); Red Cell Distribution Width 16.1 % (9.3-17.3)
[2021-08-18 05:40] LABS: Platelet Count 323 T/CUMM (130-400); White Blood Count 5.6 T/CUMM (4-12)
[2021-08-18 05:51] LABS: Albumin 1.7 G/DL (3.4-5.0); Bilirubin,Total 0.4 MG/DL (0.20-1.00); Calcium 8.6 MG/DL (8.5-10.1); Osmolality,Calculated 284.3 MOS/KG (273-304); Potassium 4.1 MMOL/L (3.5-5.1)
[2021-08-18] MEDS ORDERED: LACTATED RINGERS 1,000 ML IV ONE (08:48)
[2021-08-18] MEDS: FUROSEMIDE 40 MG/4 ML VIAL IV SCH (10:16)
[2021-08-18] MEDS: DOCUSATE SODIUM 100 MG CAPSULE PO SCH (10:16)
[2021-08-18] MEDS: DILTIAZEM 30 MG TABLET PO SCH ×2 (10:16→22:36)
[2021-08-18] MEDS: SODIUM HYPOCHLORITE 0.25% IRRIG 473 ML BOTTLE TOP SCH (10:17)
[2021-08-18] MEDS: tiZANidine 4 MG TABLET PO SCH ×3 (10:17→20:49)
[2021-08-18] MEDS: PANTOPRAZOLE 40 MG TABLET PO SCH (10:17)
[2021-08-18] MEDS: FERROUS SULFATE 325 MG TABLET PO SCH (10:17)
[2021-08-18] MEDS: APIXABAN 5 MG TABLET PO SCH ×2 (10:17→20:50)
[2021-08-18] MEDS: ASPIRIN EC 81 MG TABLET PO SCH (10:17)
[2021-08-18] MEDS: MENTHOL/ZINC OXIDE OINT 71 GM JAR TOP SCH ×2 (10:17→20:50)
[2021-08-18] MEDS: ACETYLCYSTEINE 600 MG CAPSULE PO SCH ×2 (10:18→20:49)
[2021-08-18] MEDS: ACETAMINOPHEN 325 MG TABLET PO PRN ×2 (17:35→20:49)
[2021-08-18] MEDS: MELATONIN 3 MG TABLET PO SCH (20:49)
[2021-08-18] MEDS: ATORVASTATIN 40 MG TABLET PO SCH (20:49)
[2021-08-18] MEDS: MINERAL OIL/PETROLATUM OPH OINT 3.5 GM TUBE BOTH EYES SCH (20:50)
[2021-08-19] MEDS: ALBUTEROL/IPRATROPIUM 3 ML NEB RESP TX SCH ×3 (01:02→13:25)
[2021-08-19] MEDS: PIPERACILLIN/TAZOBACTAM 3,375 MG in SODIUM CHLORIDE 0.9% 100 ML IV SCH ×2 (02:31→11:18)
[2021-08-19 05:48] LABS: Basophils % 0.6 % (0.0-0.8); Eosinophils % 0.6 % (0.00-10.9); Hemoglobin 8.4 GM/DL (12.0-16.0); Immature Granulocytes % 0.4 %; Immature Granulocytes Absolute 0.02 #; Lymphocytes # 1.5 10*3/uL (1.4-4.0); Lymphocytes % 31.5 % (21.3-54.2); Mean Corpuscular Volume 96.6 FL (87-102); Mean Platelet Volume 11.2 FL (9.6-12.0); Monocytes % 9.8 % (1.7-12.7); Neutrophils % 57.1 % (38.7-73.9); Platelet Count 266 T/CUMM (130-400); Red Cell Distribution Width 16.3 % (9.3-17.3); White Blood Count 4.9 T/CUMM (4-12)
[2021-08-19 06:02] LABS: Calcium 8.2 MG/DL (8.5-10.1); Osmolality,Calculated 283.3 MOS/KG (273-304); Potassium 3.6 MMOL/L (3.5-5.1)
[2021-08-19 06:21] LABS: Hypochromia 1+; Microcytosis 1+
[2021-08-19 06:22] LABS: Ovalocytes Slight; Platelet Estimate Normal
[2021-08-19] MEDS: DILTIAZEM 30 MG TABLET PO SCH (08:33)
[2021-08-19] MEDS: PANTOPRAZOLE 40 MG TABLET PO SCH (08:34)
[2021-08-19] MEDS: ACETYLCYSTEINE 600 MG CAPSULE PO SCH (08:34)
[2021-08-19] MEDS: SODIUM HYPOCHLORITE 0.25% IRRIG 473 ML BOTTLE TOP SCH (08:35)
[2021-08-19] MEDS: MENTHOL/ZINC OXIDE OINT 71 GM JAR TOP SCH (08:35)
[2021-08-19] MEDS: tiZANidine 4 MG TABLET PO SCH ×2 (08:35→16:00)
[2021-08-19] MEDS: APIXABAN 5 MG TABLET PO SCH (08:35)
[2021-08-19] MEDS: ASPIRIN EC 81 MG TABLET PO SCH (08:35)
[2021-08-19] MEDS: FERROUS SULFATE 325 MG TABLET PO SCH (08:35)
[2021-08-19] MEDS: DOCUSATE SODIUM 100 MG CAPSULE PO SCH (08:35)
[2021-08-19] MEDS ORDERED: METOPROLOL TARTRATE 25 MG TABLET PO SCH (12:30)
[2021-08-19 12:55] VITALS: BP 118/87
[2021-08-19] MEDS ORDERED: ERTAPENEM 1,000 MG in SODIUM CHLORIDE 0.9% 100 ML IV SCH (13:00)
[2021-08-19] MEDS: ACETAMINOPHEN 325 MG TABLET PO PRN (13:31)
[2021-08-19] MEDS ORDERED: GABAPENTIN 300 MG CAPSULE PO SCH (15:00)
[2021-08-20] MEDS ORDERED: ISOSORBIDE MONONITRATE 30 MG TABLET PO SCH (09:00)
== END 2021-08-19 19:15 | DRG 139 ==
LOC: EDUNIT# → EDBD → N.ED 06:15 → SUATTDRO 09:59 → N.EDINP 09:59 → N.3E 14:24
PROVIDERS: ADMIT Phlebology; ATTEND Internal Medicine